=== PATIENT | male | born 1955 | race African-American/Black ===

== ENCOUNTER 2018-07-13 15:18 | Emergency (ER) | payer MEDICARE, OTHER ==
[2018-07-13 16:10] LABS: ALT (SGPT) 9 U/L (8-55); AST (SGOT) 18 U/L (5-34); Albumin 3.4 g/dL (3.4-4.8); Alkaline Phosphatase 75 U/L (40-150); Anion Gap 14 mmol/L (10-20); BUN (Urea Nitrogen) 45 mg/dL (8.4-25.7); Bilirubin, Total 0.3 mg/dL (0.2-1.2); Calc. Creatinine Clearance 0 mL/min (70-130); Calcium 9.3 mg/dL (7.8-10.44); Carbon Dioxide 22 mmol/L (23-31); Chloride 108 mmol/L (98-107); Estimated GFR-MDRD 50; Globulin 3.9 g/dL (2.4-3.5); Glucose 120 mg/dL (80-115); Potassium 5.6 mmol/L (3.5-5.1); Protein, Total 7.3 g/dL (5.8-8.1); Sodium 138 mmol/L (136-145)
[2018-07-13 16:13] LABS: #Basophils 0.1 thou/uL (0.0-0.2); #Eosinphils 0.2 thou/uL (0.0-0.7); #Lymphocytes 1.5 thou/uL (1.20-3.40); #Monocytes 0.6 thou/uL (0.11-0.59); #Neutrophils 5.6 thou/uL (1.40-6.50); %Basophils 1.5 % (0.0-1.0); %Eosinophils 2.4 % (0.0-10.0); %Lymphocytes 19.3 % (21.0-51.0); %Monocytes 7.3 % (0.0-10.0); %Neutrophils 69.5 % (42.0-75.0); Hemoglobin 11.3 g/dL (14.0-18.0); Mean Corpuscular HGB CONC 28.7 g/dL (32.0-36.0); Mean Corpuscular Hemoglobin 24.6 pg (27.0-31.0); Mean Corpuscular Volume 85.6 fL (78.0-98.0); Mean Platelet Volume 9.3 fL (7.4-10.4); Platelet Count 180 thou/uL (130-400); Red Blood Cell (RBC) Count 4.59 mill/uL (4.70-6.10)
[2018-07-13] MEDS ORDERED: Albuterol Sulfate 2.5 mg/3 ml Neb ONE (16:21)
[2018-07-13] MEDS ORDERED: Sodium Chloride 0.9% 1,000 ML ONE (16:21)
[2018-07-13] MEDS ORDERED: Insulin Regular 300 UNITS/3 ML VIAL ONE (16:22)
[2018-07-13] MEDS ORDERED: Aspirin Chewable 81 MG TAB ONE (16:22)
[2018-07-13] MEDS ORDERED: Dextrose 50% Abboject 50 ML SYRINGE ONE (16:22)
[2018-07-13] MEDS ORDERED: Ondansetron PF 4 MG/2 ML Vial ONE (16:23)
== END 2018-07-13 17:38 | disposition home or self-care (01) ==
LOC: NAV ERS 15:18
DX: E87.5 Hyperkalemia (principal); N17.9 Acute kidney failure, unspecified; R00.1 Bradycardia, unspecified; E11.9 Type 2 diabetes mellitus without complications; I11.0 Hypertensive heart disease with heart failure; I50.9 Heart failure, unspecified; M10.9 Gout, unspecified; F17.210 Nicotine dependence, cigarettes, uncomplicated; Z79.899 Other long term (current) drug therapy; Z79.84 Long term (current) use of oral hypoglycemic drugs
CPT/HCPCS: 80053; 84484; 85025; 93005; 94640; 96361; 96374; 96375; J1815; J2405; J7050; J7611

== ENCOUNTER 2019-07-20 18:43 | Inpatient (IN) | payer MEDICARE, OTHER ==
[2019-07-20] MEDS ORDERED: Dextrose 50% Abboject 50 ML SYRINGE IVP PRN (20:46)
[2019-07-20] MEDS ORDERED: HumaLOG 300 UNITS/3 ML VIAL SC PRN ×2 (20:46)
[2019-07-20] MEDS ORDERED: Dextrose 5% in Water 1,000 ML IV PRN (20:46)
[2019-07-20] MEDS ORDERED: Acetaminophen 325 MG TAB PO PRN ×2 (20:47)
[2019-07-20] MEDS ORDERED: Saccharomyces boulardii 250 MG CAP PO SCH (21:00)
[2019-07-20] MEDS: Atorvastatin Calcium 40 MG TAB PO SCH (21:27)
[2019-07-21 06:10] LABS: Anisocytosis MODERATE=16-30 cells (100X) (0-5/hpf); Band 8 % (5-11); Hemoglobin 10.4 g/dL (14.0-18.0); Hypochromia MODERATE=16-30 cells (100X) (0-5/hpf); Lymphocytes 16 % (21-51); MDiff Complete? YES; Mean Corpuscular HGB CONC 28.3 g/dL (32.0-36.0); Mean Corpuscular Hemoglobin 22.9 pg (27.0-31.0); Mean Corpuscular Volume 80.9 fL (78.0-98.0); Mean Platelet Volume 12.4 fL (7.4-10.4); Monocytes 8 % (0-10); Neutrophil 66 % (42-75); Ovalocytes MODERATE= 6-15 cells (100X) (0-1/hpf); Platelet Count 103 thou/uL (130-400); Platelet Morphology Comment Appears Decreased; Poikilocytosis MODERATE=16-30 cells (100X) (0-5/hpf); Polychromasia SLIGHT = 2-3 cells (100X) (0-2/hpf); RBC Distribution Width 18.1 % (11.5-14.5); Reactive Lymphocytes 2 % (0-10); Red Blood Cell (RBC) Count 4.54 mill/uL (4.70-6.10); Schistocytes SLIGHT = 2-5 cells (100X) (0-1/hpf); Target Cells SLIGHT = 2-5 cells (100X) (0-1/hpf); White Blood Cell (WBC) Count 7.9 thou/uL (4.8-10.8)
[2019-07-21 06:13] LABS: ALT (SGPT) 13 U/L (8-55); AST (SGOT) 17 U/L (5-34); Albumin 2.7 g/dL (3.4-4.8); Alkaline Phosphatase 88 U/L (40-110); Anion Gap 13 mmol/L (10-20); BUN (Urea Nitrogen) 57 mg/dL (8.4-25.7); Bilirubin, Total 0.8 mg/dL (0.2-1.2); Calc. Creatinine Clearance 154 mL/min (70-130); Calcium 9.1 mg/dL (7.8-10.44); Carbon Dioxide 33 mmol/L (23-31); Chloride 105 mmol/L (98-107); Estimated GFR-MDRD 70; Globulin 3.9 g/dL (2.4-3.5); Glucose 100 mg/dL (80-115); Potassium 4.2 mmol/L (3.5-5.1); Protein, Total 6.6 g/dL (5.8-8.1); Sodium 147 mmol/L (136-145)
[2019-07-21] MEDS: Ferrous Sulfate 325 MG TAB PO SCH (07:59)
[2019-07-21] MEDS: Saccharomyces boulardii 250 MG CAP PO SCH (08:00)
[2019-07-21] MEDS: Allopurinol 100 MG TAB PO SCH (08:00)
[2019-07-21] MEDS: Torsemide 20 MG TAB PO SCH (08:00)
[2019-07-21] MEDS: Folic Acid 1 MG TAB PO SCH (08:01)
[2019-07-21] MEDS ORDERED: Prevnar 13-Val Conj/PF 0.5 ML SYRINGE IM ONE (09:00)
--- NOTE | 2019-07-21 09:44 | HP ---
CHIEF COMPLAINT: Improving acute hypoxemic hypercarbic respiratory failure and deconditioning for therapy. BRIEF HISTORY: This is a morbidly obese 64-year-old male, who apparently had a mechanical fall at his home in his bathtub. He was noted to have a fever by the EMS and generalized weakness and was admitted to the hospital. He was COVID-19 negative. He was noted to be in hypoxemic hypercarbic respiratory failure felt to be due to obesity hypoventilation with superimposed pneumonia. He was treated with antibiotics, diuretics, and oxygen therapy. He was also started on empiric CPAP therapy at night. Echocardiogram showed global hypokinesis with ejection fraction of 40% to 45% as well as diastolic dysfunction consistent with cor pulmonale and chronic combined congestive heart failure. The patient states he has a history of diabetes, but was taken off his medications by his physician last year. He apparently sees Dr. Carmona in [place]. He last saw him last month, per patient. Currently, he is resting in bed and denies any concerns. He apparently slept well. Discussed with nursing. No fever or chills. No chest pain or shortness of breath. PAST MEDICAL HISTORY: 1. Hypertension. 2. Dyslipidemia. 3. Possible gout. 4. Morbid obesity. 5. History of diabetes mellitus. PAST SURGICAL HISTORY: The patient denies any history of surgeries, but there is documentation of some facial surgery in the past in his old records. ALLERGIES: NO KNOWN DRUG ALLERGIES. FAMILY HISTORY: Denies any history of heart disease or respiratory issues. PSYCHOSOCIAL HISTORY: He has a more than a 30 pack-year history of smoking. He is not smoking at the present time. He denies any alcohol or recreational drug abuse. MEDICATIONS: He has been admitted here with the following medications: 1. Allopurinol 300 mg daily. 2. Atorvastatin 40 mg daily. 3. Iron sulfate 325 mg b.i.d. 4. Folic acid 1 mg daily. 5. Florastor 250 mg daily. 6. Torsemide 20 mg daily. REVIEW OF SYSTEMS: CARDIOVASCULAR SYSTEM: Denies any chest pain. Improving shortness of breath. Denies any palpitations. RESPIRATORY SYSTEM: Denies any chronic cough, expectoration, or pleuritic-type chest pain. GASTROINTESTINAL SYSTEM: Denies any nausea, vomiting, diarrhea, constipation, hematemesis, melena, or hematochezia. GENITOURINARY SYSTEM: Denies any frequency, urgency, dysuria, or hematuria. CENTRAL NERVOUS SYSTEM: Denies any focal numbness, weakness, or fainting spells. HEENT: Denies any difficulty with speech, vision, hearing, or swallowing. SKIN: Denies any rash. NECK: Denies any enlarged lymph nodes. PHYSICAL EXAMINATION: GENERAL: This is a pleasant, morbidly obese 64-year-old male, who is resting in bed and denies any concerns. He responds appropriately to questions. VITAL SIGNS: He is afebrile, heart rate 77, respirations 19, oxygen saturation 93% on 3 L, and blood pressure 152/77. HEENT: Normocephalic and atraumatic. Pupils are equally reacting to light and accommodation. NECK: No JVD, thyromegaly, cervical adenopathy, or throat exudates. No carotid bruits. CARDIOVASCULAR SYSTEM: S1 and S2 plus. Rate and rhythm regular. RESPIRATORY SYSTEM: Normal vesicular breath sounds heard in lung romero with decreased air entry in the bases. ABDOMEN: Soft, obese, nontender. Bowel sounds heard in all quadrants. EXTREMITIES: Without cyanosis or clubbing. 2 to 3+ edema, which looks with stasis dermatitis, edema is brawny. Peripheral pulses are palpable. CENTRAL NERVOUS SYSTEM: Awake and responsive. Cranial nerves 2 through 12 intact. Motor system examination is grossly nonfocal except for generalized weakness. LABORATORY VALUES: Sodium 147, potassium 4.2, BUN and creatinine 57 and 1.25. AST and ALT are normal. Blood sugars are 153 and 90. White count is 7.9, H and H are 10.4 and 36.7 with microcytosis and a platelet count of 103. IMPRESSION: 1. Acute hypoxemic hypercarbic respiratory failure. 2. Obesity hypoventilation syndrome. 3. Resolving pneumonitis. 4. Chronic combined congestive heart failure. 5. One episode of atrial fibrillation. 6. Hypertension. 7. Dyslipidemia. 8. Morbid obesity. 9. Microcytic anemia and thrombocytopenia. 10. Hypernatremia. 11. Elevated BUN. PLAN: 1. Continue current medications. 2. Heart healthy diet. 3. Monitor Accu-Cheks and check glycohemoglobin. Discontinue Accu-Cheks as his hemoglobin A1c is normal. 4. Monitor blood pressure and adjust medications. 5. Nocturnal CPAP. We are going to continue the same settings as he was in the other hospital. 6. Titrate oxygen as tolerated. 7. Reinforced compliance with incentive spirometry. 8. PT/OT eval and treat. 9. Continue iron. 10. Monitor platelet count and monitor for any other signs of bleeding. 11. Routine laboratory values. 12. Discussed with the patient in detail as well as nursing and all questions answered. Job ID: [id number]
[2019-07-21 12:23] LABS: Hemoglobin A1c 6.5 % (4.0-6.0)
[2019-07-21] MEDS ORDERED: Amlodipine 5 MG TAB PO SCH (20:15)
[2019-07-21] MEDS ORDERED: cloNIDine 0.1 MG TAB PO PRN (20:16)
[2019-07-21] MEDS: Atorvastatin Calcium 40 MG TAB PO SCH (20:33)
[2019-07-22] MEDS: Ferrous Sulfate 325 MG TAB PO SCH (08:44)
[2019-07-22] MEDS: Allopurinol 100 MG TAB PO SCH (08:44)
[2019-07-22] MEDS: Amlodipine 5 MG TAB PO SCH (08:45)
[2019-07-22] MEDS: Torsemide 20 MG TAB PO SCH (08:46)
[2019-07-22] MEDS: Saccharomyces boulardii 250 MG CAP PO SCH (08:46)
[2019-07-22] MEDS: Folic Acid 1 MG TAB PO SCH (08:46)
--- NOTE | 2019-07-22 15:16 | PRG ---
DATE OF SERVICE: 07/22/2019 SUBJECTIVE: Mr. Lechuga is doing well. He did require p.r.n. clonidine yesterday. He has started on amlodipine and his blood pressure is doing much better. His A1c is 6.5, and I will discontinue his Accu-Cheks. OBJECTIVE: VITAL SIGNS: The patient is afebrile. Heart rate 54, respirations 22, oxygen saturation 93% on 3 L, and blood pressure 129/71. CARDIOVASCULAR: S1 and S2 plus. RESPIRATORY: Normal vesicular breath sounds. ABDOMEN: Soft, obese, nontender. Bowel sounds heard in all quadrants. EXTREMITIES: Without cyanosis or clubbing. Chronic edema. CENTRAL NERVOUS SYSTEM: Generalized weakness otherwise nonfocal. IMPRESSION: 1. Acute hypoxemic hypercarbic respiratory failure. 2. Obesity hypoventilation syndrome. 3. Morbid obesity. 4. Hypertension. 5. Dyslipidemia. 6. Possible gout. 7. Diabetes mellitus, on dietary management. PLAN: 1. Continue current medications. 2. 1800 calorie heart healthy ADA diet. 3. Discontinue Accu-Cheks since his blood sugars have been reasonably good. 4. Physical therapy. 5. Titrate oxygen. 6. Continue CPAP. 7. Routine laboratory values. Job ID: [id number]
[2019-07-22] MEDS: Atorvastatin Calcium 40 MG TAB PO SCH (21:09)
[2019-07-23] MEDS: Ferrous Sulfate 325 MG TAB PO SCH (08:29)
[2019-07-23] MEDS: Amlodipine 5 MG TAB PO SCH (08:30)
[2019-07-23] MEDS: Torsemide 20 MG TAB PO SCH (08:30)
[2019-07-23] MEDS: Saccharomyces boulardii 250 MG CAP PO SCH (08:30)
[2019-07-23] MEDS: Folic Acid 1 MG TAB PO SCH (08:30)
[2019-07-23] MEDS: Allopurinol 100 MG TAB PO SCH (08:30)
--- NOTE | 2019-07-23 10:55 | PRG ---
DATE OF SERVICE: 07/23/2019 SUBJECTIVE: Mr. Lechuga is resting in bed. Denies any complaints. He has his nasal cannula on, but is actually going to the side of his face. He was not in any distress. OBJECTIVE: VITAL SIGNS: He is afebrile. Heart rate 57, respirations 18, oxygen saturation 93% on 3 L, and blood pressure 140/63. CARDIOVASCULAR: S1 and S2 plus. RESPIRATORY: Normal vesicular breath sounds. ABDOMEN: Soft, obese, nontender. Bowel sounds heard in all quadrants. EXTREMITIES: Without cyanosis or clubbing. Chronic stasis dermatitis and brawny edema. CENTRAL NERVOUS SYSTEM: Generalized weakness. IMPRESSION: 1. Acute hypoxemic respiratory failure. 2. Obesity hypoventilation syndrome. 3. Hypertension. 4. Dyslipidemia. 5. Possible gout. 6. Diabetes mellitus, on dietary management. PLAN: 1. Continue current medications. 2. 1800 calorie heart healthy ADA diet. 3. Titrate oxygen. 4. Monitor respiratory status. 5. Physical therapy. 6. Decubitus precautions. 7. Continue CPAP at night. 8. Routine laboratory values. Job ID: [id number]
[2019-07-23] MEDS: Atorvastatin Calcium 40 MG TAB PO SCH (21:03)
[2019-07-24] MEDS: Ferrous Sulfate 325 MG TAB PO SCH (08:27)
[2019-07-24] MEDS: Saccharomyces boulardii 250 MG CAP PO SCH (08:27)
[2019-07-24] MEDS: Folic Acid 1 MG TAB PO SCH (08:28)
[2019-07-24] MEDS: Allopurinol 100 MG TAB PO SCH (08:28)
[2019-07-24] MEDS: Torsemide 20 MG TAB PO SCH (08:28)
[2019-07-24] MEDS: Amlodipine 5 MG TAB PO SCH (08:28)
--- NOTE | 2019-07-24 12:51 | PRG ---
DATE OF SERVICE: 07/24/2019 SUBJECTIVE: Mr. Lechuga is up in his chair and just finished lunch. He is happy with his progress. He denies any questions or concerns. Discussed with nursing. OBJECTIVE: VITAL SIGNS: He is afebrile, heart rate 60, respirations 16, oxygen saturation 94% on 3 L, and blood pressure 152/66. CARDIOVASCULAR: S1 and S2 plus. RESPIRATORY: Normal vesicular breath sounds. ABDOMEN: Soft, nontender. Bowel sounds heard in all quadrants. EXTREMITIES: Without cyanosis or clubbing. Chronic stasis dermatitis. CENTRAL NERVOUS SYSTEM: Generalized weakness. IMPRESSION: 1. Obesity hypoventilation syndrome. 2. Acute hypoxemic respiratory failure. 3. Morbid obesity. 4. Significant deconditioning. 5. Hypertension. 6. Dyslipidemia. PLAN: 1. Continue current medications. 2. Nutritional support with heart-healthy diet. 3. DVT prophylaxis with PlexiPulses. 4. Decubitus precautions. 5. Stress ulcer prophylaxis. 6. Nocturnal CPAP. 7. Titrate oxygen. 8. Routine laboratory values. Job ID: [id number]
[2019-07-24] MEDS: Atorvastatin Calcium 40 MG TAB PO SCH (21:08)
[2019-07-25] MEDS: Allopurinol 100 MG TAB PO SCH (09:24)
[2019-07-25] MEDS: Ferrous Sulfate 325 MG TAB PO SCH (09:24)
[2019-07-25] MEDS: Folic Acid 1 MG TAB PO SCH (09:24)
[2019-07-25] MEDS: Saccharomyces boulardii 250 MG CAP PO SCH (09:24)
[2019-07-25] MEDS: Amlodipine 5 MG TAB PO SCH (09:24)
[2019-07-25] MEDS: Torsemide 20 MG TAB PO SCH (09:24)
--- NOTE | 2019-07-25 12:19 | PRG ---
DATE OF SERVICE: 07/25/2019 SUBJECTIVE: Mr. Lechuga is up in his chair, getting ready to eat his lunch. He denies any questions or concerns. Discussed with nursing. OBJECTIVE: VITAL SIGNS: He is afebrile. Heart rate is 58, respirations 16, oxygen saturation 96% on 3 L, and blood pressure is 144/64. CARDIOVASCULAR SYSTEM: S1 and S2 plus. RESPIRATORY SYSTEM: Normal vesicular breath sounds. ABDOMEN: Soft and nontender. Bowel sounds heard in all quadrants. EXTREMITIES: Without cyanosis or clubbing. Chronic stasis dermatitis. CENTRAL NERVOUS SYSTEM: Generalized weakness, otherwise nonfocal. IMPRESSION: 1. Obesity hypoventilation syndrome. 2. Acute hypoxemic respiratory failure. 3. Morbid obesity. 4. Deconditioning. 5. Diabetes mellitus, on lifestyle management. 6. Hypertension. 7. Dyslipidemia. PLAN: 1. Discontinue Accu-Cheks. 2. Nutritional support with heart healthy diet. 3. DVT prophylaxis with PlexiPulses. 4. Decubitus precautions. 5. Titrate oxygen. 6. Monitor respiratory status. 7. Physical therapy. 8. Routine laboratory values. Job ID: [id number]
[2019-07-25] MEDS: Atorvastatin Calcium 40 MG TAB PO SCH (20:48)
[2019-07-26] MEDS: Ferrous Sulfate 325 MG TAB PO SCH (08:31)
[2019-07-26] MEDS: Allopurinol 100 MG TAB PO SCH (08:31)
[2019-07-26] MEDS: Saccharomyces boulardii 250 MG CAP PO SCH (08:32)
[2019-07-26] MEDS: Folic Acid 1 MG TAB PO SCH (08:32)
[2019-07-26] MEDS: Torsemide 20 MG TAB PO SCH (08:32)
[2019-07-26] MEDS: Amlodipine 5 MG TAB PO SCH (08:32)
--- NOTE | 2019-07-26 10:49 | PRG ---
DATE OF SERVICE: 07/26/2019 SUBJECTIVE: Mr. Lechuga is doing the same. Denies any complaints. He is happy with his progress. No family at bedside. Discussed with Nursing. OBJECTIVE: VITAL SIGNS: He is afebrile. Heart rate is 55, respirations 18, oxygen saturation 96% on 3 L, and blood pressure 147/66. CARDIOVASCULAR: S1 and S2 plus. RESPIRATORY: Normal vesicular breath sounds. ABDOMEN: Soft and nontender. Bowel sounds heard in all quadrants. Obese. EXTREMITIES: Without cyanosis or clubbing, stasis dermatitis. CENTRAL NERVOUS SYSTEM: Grossly nonfocal except for generalized weakness. IMPRESSION: 1. Obesity hypoventilation syndrome. 2. Morbid obesity. 3. Hypertension. 4. Dyslipidemia. 5. Acute hypoxemic respiratory failure. 6. Diabetes mellitus, on lifestyle management. PLAN: 1. Continue current medications. 2. 1800 calorie heart healthy ADA diet. 3. Discontinue Accu-Cheks since his blood sugars have been stable. 4. Decubitus precautions. 5. DVT prophylaxis with PlexiPulses. 6. Physical therapy. 7. Titrate oxygen and monitor respiratory status. Job ID: [id number]
[2019-07-26] MEDS: Atorvastatin Calcium 40 MG TAB PO SCH (20:09)
[2019-07-27] MEDS: Ferrous Sulfate 325 MG TAB PO SCH (08:01)
[2019-07-27] MEDS: Amlodipine 5 MG TAB PO SCH (08:02)
[2019-07-27] MEDS: Allopurinol 100 MG TAB PO SCH (08:02)
[2019-07-27] MEDS: Folic Acid 1 MG TAB PO SCH (08:03)
[2019-07-27] MEDS: Saccharomyces boulardii 250 MG CAP PO SCH (08:03)
[2019-07-27] MEDS: Torsemide 20 MG TAB PO SCH (08:03)
--- NOTE | 2019-07-27 12:50 | PRG ---
DATE OF SERVICE: 07/27/2019 SUBJECTIVE: Mr. Lechuga is doing well. He is getting ready to wheel himself with therapy. He is happy with his progress. Discussed with nursing. No concerns or questions. OBJECTIVE: VITAL SIGNS: He is afebrile. Heart rate 63, respirations 18, oxygen saturation 95% on 3 L, and blood pressure 144/64. CARDIOVASCULAR SYSTEM: S1 and S2, plus. RESPIRATORY SYSTEM: Normal vesicular breath sounds. ABDOMEN: Soft, obese, nontender. Bowel sounds heard in all quadrants. EXTREMITIES: Without cyanosis or clubbing, chronic stasis dermatitis and brawny edema. CENTRAL NERVOUS SYSTEM: Generalized weakness, otherwise nonfocal. IMPRESSION: 1. Obesity hypoventilation syndrome. 2. Acute hypoxemic hypercarbic respiratory failure. 3. Morbid obesity. 4. Hypertension. 5. Diabetes mellitus, on diet control. 6. Significant deconditioning. 7. Dyslipidemia. PLAN: 1. Continue current medications. 2. 1800-calorie heart-healthy ADA diet. 3. DVT prophylaxis with PlexiPulses. 4. Decubitus precautions. 5. Monitor respiratory status and titrate oxygen. 6. Continue physical therapy. 7. Routine laboratory values. 8. Nocturnal CPAP. Job ID: [id number]
[2019-07-27] MEDS: Atorvastatin Calcium 40 MG TAB PO SCH (21:30)
[2019-07-28] MEDS: Allopurinol 100 MG TAB PO SCH (09:33)
[2019-07-28] MEDS: Ferrous Sulfate 325 MG TAB PO SCH (09:33)
[2019-07-28] MEDS: Saccharomyces boulardii 250 MG CAP PO SCH (09:33)
[2019-07-28] MEDS: Folic Acid 1 MG TAB PO SCH (09:33)
[2019-07-28] MEDS: Torsemide 20 MG TAB PO SCH (09:33)
[2019-07-28] MEDS: Amlodipine 5 MG TAB PO SCH (09:33)
--- NOTE | 2019-07-28 10:22 | PRG ---
DATE OF SERVICE: 07/28/2019 SUBJECTIVE: Mr. Lechuga is resting in bed. He denies any complaints. He had a restful night. Discussed with nursing. No family at bedside. OBJECTIVE: VITAL SIGNS: He is afebrile. Heart rate 64, respirations 18, oxygen saturation 96% on 3 L, and blood pressure 172/74, this is before he got his blood pressure medications. CARDIOVASCULAR: S1 and S2 plus. RESPIRATORY: Normal vesicular breath sounds with decreased air entry at the bases. ABDOMEN: Soft, obese, nontender. Bowel sounds heard in all quadrants. EXTREMITIES: Chronic brawny edema with stasis dermatitis. CENTRAL NERVOUS SYSTEM: Improving deconditioning. IMPRESSION: 1. Obesity hypoventilation syndrome. 2. Acute hypoxemic hypercarbic respiratory failure. 3. Hypertension. 4. Dyslipidemia. 5. Deconditioning. 6. Diabetes mellitus, on dietary management. PLAN: 1. Continue current medications. 2. Titrate oxygen. 3. Monitor respiratory status. 4. 1800 calorie heart healthy ADA diet. 5. Physical therapy. 6. Routine laboratory values. 7. Reinforce complaints with nocturnal CPAP. Job ID: [id number]
[2019-07-28] MEDS: Atorvastatin Calcium 40 MG TAB PO SCH (20:59)
[2019-07-29] MEDS: Amlodipine 5 MG TAB PO SCH (08:49)
[2019-07-29] MEDS: Saccharomyces boulardii 250 MG CAP PO SCH (08:49)
[2019-07-29] MEDS: Ferrous Sulfate 325 MG TAB PO SCH (08:49)
[2019-07-29] MEDS: Folic Acid 1 MG TAB PO SCH (08:49)
[2019-07-29] MEDS: Allopurinol 100 MG TAB PO SCH (08:50)
[2019-07-29] MEDS: Torsemide 20 MG TAB PO SCH (08:50)
[2019-07-29] MEDS: Atorvastatin Calcium 40 MG TAB PO SCH (20:10)
[2019-07-30] MEDS: Saccharomyces boulardii 250 MG CAP PO SCH (08:49)
[2019-07-30] MEDS: Allopurinol 100 MG TAB PO SCH (08:49)
[2019-07-30] MEDS: Amlodipine 5 MG TAB PO SCH (08:50)
[2019-07-30] MEDS: Ferrous Sulfate 325 MG TAB PO SCH (08:50)
[2019-07-30] MEDS: Torsemide 20 MG TAB PO SCH (08:50)
[2019-07-30] MEDS: Folic Acid 1 MG TAB PO SCH (08:50)
[2019-07-30] MEDS: Atorvastatin Calcium 40 MG TAB PO SCH (21:44)
[2019-07-31] MEDS: Amlodipine 5 MG TAB PO SCH (08:08)
[2019-07-31] MEDS: Allopurinol 100 MG TAB PO SCH (08:08)
[2019-07-31] MEDS: Ferrous Sulfate 325 MG TAB PO SCH (08:08)
[2019-07-31] MEDS: Torsemide 20 MG TAB PO SCH (08:09)
[2019-07-31] MEDS: Folic Acid 1 MG TAB PO SCH (08:09)
[2019-07-31] MEDS: Saccharomyces boulardii 250 MG CAP PO SCH (08:09)
--- NOTE | 2019-07-31 13:43 | PRG ---
DATE OF SERVICE: 07/31/2019 SUBJECTIVE: Mr. Lechuga is up in his chair. He just finished lunch. He is happy with his progress. He states he is compliant with his CPAP. OBJECTIVE: VITAL SIGNS: He is afebrile. Heart rate is 60, respirations 18, oxygen saturation 93% on 3 L, and blood pressure is 171/80 and with therapy 146/95. CARDIOVASCULAR: S1 and S2 plus. RESPIRATORY: Normal vesicular breath sounds. ABDOMEN: Soft, obese, nontender. Bowel sounds heard in all quadrants. EXTREMITIES: Without cyanosis or clubbing. Chronic stasis dermatitis and brawny edema. CENTRAL NERVOUS SYSTEM: Improving deconditioning. IMPRESSION: 1. Acute hypoxemic hypercarbic respiratory failure. 2. Obesity hypoventilation syndrome. 3. Diabetes mellitus, on diet control. 4. Hypertension. 5. Dyslipidemia. 6. Morbid obesity. 7. Deconditioning. PLAN: 1. Continue current medications. 2. Heart healthy diet. 3. DVT prophylaxis with PlexiPulses. 4. Decubitus precautions. 5. Stress ulcer prophylaxis. 6. Physical therapy. 7. Recheck CBC and BMP tomorrow. 8. Titrate oxygen. 9. CPAP at night. Job ID: [id number]
[2019-07-31] MEDS: Atorvastatin Calcium 40 MG TAB PO SCH (21:00)
[2019-08-01 06:00] LABS: Anion Gap 13 mmol/L (10-20); BUN (Urea Nitrogen) 41 mg/dL (8.4-25.7); Calc. Creatinine Clearance 132 mL/min (70-130); Calcium 9.1 mg/dL (7.8-10.44); Carbon Dioxide 32 mmol/L (23-31); Chloride 103 mmol/L (98-107); Estimated GFR-MDRD 59; Glucose 89 mg/dL (80-115); Potassium 4.4 mmol/L (3.5-5.1); Sodium 144 mmol/L (136-145)
[2019-08-01 06:06] LABS: #Basophils 0.1 thou/uL (0.0-0.2); #Eosinphils 0.4 thou/uL (0.0-0.7); #Lymphocytes 1.4 thou/uL (1.20-3.40); #Monocytes 0.5 thou/uL (0.11-0.59); #Neutrophils 5.6 thou/uL (1.40-6.50); %Basophils 1.4 % (0.0-1.0); %Eosinophils 5.2 % (0.0-10.0); %Neutrophils 70.4 % (42.0-75.0); Hemoglobin 9.7 g/dL (14.0-18.0); Hypochromia MODERATE=16-30 cells (100X) (0-5/hpf); MDiff Complete? YES; Mean Corpuscular HGB CONC 27.8 g/dL (32.0-36.0); Mean Corpuscular Hemoglobin 22.7 pg (27.0-31.0); Mean Corpuscular Volume 81.6 fL (78.0-98.0); Microcytosis SLIGHT = 6-15 cells (100X) (0-5/hpf); Ovalocytes SLIGHT = 2-5 cells (100X) (0-1/hpf); Platelet Count 141 thou/uL (130-400); Platelet Morphology Comment Appears Adequate; RBC Distribution Width 18.1 % (11.5-14.5); Red Blood Cell (RBC) Count 4.26 mill/uL (4.70-6.10)
[2019-08-01] MEDS: Allopurinol 100 MG TAB PO SCH (09:18)
[2019-08-01] MEDS: Ferrous Sulfate 325 MG TAB PO SCH (09:18)
[2019-08-01] MEDS: Amlodipine 5 MG TAB PO SCH (09:19)
[2019-08-01] MEDS: Saccharomyces boulardii 250 MG CAP PO SCH (09:19)
[2019-08-01] MEDS: Folic Acid 1 MG TAB PO SCH (09:19)
[2019-08-01] MEDS: Torsemide 20 MG TAB PO SCH (09:19)
--- NOTE | 2019-08-01 18:38 | PRG ---
DATE OF SERVICE: 08/01/2019 SUBJECTIVE: Mr. Lechuga is sitting in his chair. He just finished lunch. He is happy with his progress. Denies any questions or concerns. Discussed with nursing. OBJECTIVE: VITAL SIGNS: He is afebrile. Heart rate 57, respirations 18, oxygen saturation 95% on 3 L, and blood pressure 160/69. CARDIOVASCULAR SYSTEM: S1 and S2 plus. RESPIRATORY SYSTEM: Normal vesicular breath sounds. ABDOMEN: Soft, obese, nontender. Bowel sounds heard in all quadrants. EXTREMITIES: Without cyanosis or clubbing. Chronic stasis dermatitis and edema. CENTRAL NERVOUS SYSTEM: Generalized weakness, otherwise nonfocal. IMPRESSION: 1. Hypertension. 2. Dyslipidemia. 3. Acute hypoxemic hypercarbic respiratory failure. 4. Obesity hypoventilation syndrome. 5. Morbid obesity. 6. Diabetes mellitus, on diet control and deconditioning. PLAN: 1. Continue current medications. 2. 1800-calorie heart-healthy ADA diet. 3. Monitor blood pressure. 4. Monitor respiratory status. 5. Reinforce compliance with CPAP. 6. Continue PT/OT. 7. DVT prophylaxis with PlexiPulses. 8. Routine laboratory values. Job ID: [id number]
[2019-08-01] MEDS: Atorvastatin Calcium 40 MG TAB PO SCH (20:05)
[2019-08-02] MEDS: Torsemide 20 MG TAB PO SCH (09:07)
[2019-08-02] MEDS: Allopurinol 100 MG TAB PO SCH (09:07)
[2019-08-02] MEDS: Saccharomyces boulardii 250 MG CAP PO SCH (09:07)
[2019-08-02] MEDS: Ferrous Sulfate 325 MG TAB PO SCH (09:07)
[2019-08-02] MEDS: Folic Acid 1 MG TAB PO SCH (09:07)
[2019-08-02] MEDS: Amlodipine 5 MG TAB PO SCH (09:08)
[2019-08-02] MEDS ORDERED: Loperamide HCl 2 MG CAP PO PRN (12:48)
--- NOTE | 2019-08-02 14:22 | PRG ---
DATE OF SERVICE: 08/02/2019 SUBJECTIVE: Mr. Lechuga is worried about his diarrhea. He apparently had two episodes earlier yesterday and one episode this morning. I advised nursing to send a stool for C diff. If he has another episode, I am also going to stop his probiotic and start him on Imodium p.r.n. after the stool studies are done. He denies any fever or chills. He is happy with progress. I also advised nursing to titrate him off the oxygen. OBJECTIVE: VITAL SIGNS: He is afebrile. Heart rate is 55, oxygen saturation 96% on 2 L. Last blood pressure is 146/63. CARDIOVASCULAR SYSTEM: S1 and S2 plus. RESPIRATORY SYSTEM: Normal vesicular breath sounds. ABDOMEN: Soft, obese, and nontender. Bowel sounds heard in all quadrants. EXTREMITIES: Without cyanosis or clubbing. Chronic stasis dermatitis and brawny edema. CENTRAL NERVOUS SYSTEM: Generalized weakness, otherwise nonfocal. IMPRESSION: 1. Acute hypoxemic hypercarbic respiratory failure. 2. Obesity hypoventilation syndrome. 3. Hypertension. 4. Dyslipidemia. 5. Morbid obesity. 6. Diabetes mellitus, on lifestyle management and diarrhea. PLAN: 1. Continue current medications. 2. Stop Florastor. 3. 1800-calorie heart healthy ADA diet. 4. DVT prophylaxis with PlexiPulses. 5. Stool for C diff. 6. Imodium p.r.n. 7. Continue therapy. 8. Titrate oxygen. 9. Monitor respiratory status. Job ID: [id number]
[2019-08-02] MEDS: Atorvastatin Calcium 40 MG TAB PO SCH (20:08)
[2019-08-03] MEDS: Folic Acid 1 MG TAB PO SCH (08:58)
[2019-08-03] MEDS: Amlodipine 5 MG TAB PO SCH (08:58)
[2019-08-03] MEDS: Allopurinol 100 MG TAB PO SCH (08:58)
[2019-08-03] MEDS: Torsemide 20 MG TAB PO SCH (08:59)
[2019-08-03] MEDS: Saccharomyces boulardii 250 MG CAP PO SCH (08:59)
[2019-08-03] MEDS: Ferrous Sulfate 325 MG TAB PO SCH (08:59)
--- NOTE | 2019-08-03 14:26 | PRG ---
DATE OF SERVICE: 08/03/2019 SUBJECTIVE: Mr. Lechuga is up in his chair and he states that his diarrhea is much improved. He had one small episode this morning. Stool for C diff is pending as they submitted a formed stool. He feels like he is getting stronger. He is down to 2 L of oxygen via nasal cannula. OBJECTIVE: VITAL SIGNS: He is afebrile. Heart rate 59, respirations 16, oxygen saturation 97%, blood pressure 158/69. CARDIOVASCULAR: S1 and S2 plus. RESPIRATORY: Normal vesicular breath sounds. ABDOMEN: Soft, nontender, obese. Bowel sounds heard in all quadrants. EXTREMITIES: Without cyanosis or clubbing. Chronic brawny edema and stasis dermatitis. CENTRAL NERVOUS SYSTEM: Improving deconditioning. IMPRESSION: 1. Diarrhea, much improved. Clostridium difficile is pending. 2. Hypertension. 3. Dyslipidemia. 4. Obesity hypoventilation syndrome. 5. Morbid obesity. 6. Diabetic diabetes mellitus, on diet control. 7. Deconditioning. 8. Acute hypoxemic hypercarbic respiratory failure, improving. PLAN: 1. Continue current medications. 2. 1800 calorie heart healthy ADA diet. 3. Nocturnal CPAP. 4. Monitor respiratory status and titrate oxygen. 5. Continue therapy. 6. DVT prophylaxis with PlexiPulses. 7. Routine laboratory values. Job ID: [id number]
[2019-08-03] MEDS: Atorvastatin Calcium 40 MG TAB PO SCH (21:26)
[2019-08-04] MEDS ORDERED: Amlodipine 5 MG TAB ONE (08:45)
[2019-08-04] MEDS: Ferrous Sulfate 325 MG TAB PO SCH (09:18)
[2019-08-04] MEDS: Saccharomyces boulardii 250 MG CAP PO SCH (09:18)
[2019-08-04] MEDS: Folic Acid 1 MG TAB PO SCH (09:18)
[2019-08-04] MEDS: Torsemide 20 MG TAB PO SCH (09:19)
[2019-08-04] MEDS: Amlodipine 5 MG TAB PO SCH (09:19)
[2019-08-04] MEDS: Allopurinol 100 MG TAB PO SCH (09:19)
--- NOTE | 2019-08-04 10:30 | PRG ---
DATE OF SERVICE: 08/04/2019 SUBJECTIVE: Mr. Lechuga apparently is doing well with therapy. Anticipated discharge date is Wednesday. He is still requiring 2 L of oxygen as he is dropping down into the low 80s with activity. I have off signed paperwork for his oxygen as well as for his bariatric walker, which is recommended by the therapist to reduce his risk for fall. He apparently has [facility] from [place] and he does follow up with his PCP in [place], so Case Management is going to inform [facility] to resume care and will be managed by his PCP. The patient is hesitant about the oxygen at present, he needs it and he may be able to get off it soon. OBJECTIVE: VITAL SIGNS: He is afebrile. Heart rate 58, respirations 16, oxygen saturation 100%, and blood pressure 128/58. CARDIOVASCULAR: S1 and S2 plus. RESPIRATORY: Normal vesicular breath sounds. ABDOMEN: Soft, obese, nontender. Bowel sounds heard in all quadrants. EXTREMITIES: Without cyanosis or clubbing. Chronic venous insufficiency and stasis dermatitis. CENTRAL NERVOUS SYSTEM: Improving deconditioning. IMPRESSION: 1. Acute hypoxemic respiratory failure. 2. Obesity hypoventilation syndrome. 3. Morbid obesity. 4. Hypertension. 5. Dyslipidemia. 6. Diabetes mellitus, on lifestyle management. PLAN: 1. Continue current medications. 2. 1800 calorie heart healthy ADA diet. 3. Monitor blood pressure and adjust medications as needed. 4. Monitor respiratory status. 5. Continue nocturnal CPAP. 6. Outpatient sleep study. 7. Outpatient followup with PCP MICHAEL; home health, the patient already has one before. 8. Continue therapy. Job ID: [id number]
[2019-08-04] MEDS: Atorvastatin Calcium 40 MG TAB PO SCH (20:42)
--- NOTE | 2019-08-05 07:15 | PRG ---
DATE OF SERVICE: 08/05/2019 SUBJECTIVE: Mr. Lechuga is resting in bed. He is tolerating his CPAP. He is happy about his plan to discharge on Wednesday. Arrangements are being made for him to have an outpatient sleep study. He states that he is going to follow up with his PCP in [place]. OBJECTIVE: VITAL SIGNS: He is afebrile. Heart rate 63, respirations 20, oxygen saturation 97% on 2 L. CARDIOVASCULAR: S1, S2 plus. RESPIRATORY: Normal vesicular breath sounds. ABDOMEN: Soft, obese, nontender. Bowel sounds heard in all quadrants. EXTREMITIES: Without cyanosis or clubbing. Chronic brawny edema. CENTRAL NERVOUS SYSTEM: Improving deconditioning. IMPRESSION: 1. Obesity hypoventilation syndrome. 2. Acute hypoxemic respiratory failure. 3. Hypertension. 4. Dyslipidemia. 5. Diabetes mellitus, on lifestyle management. 6. Morbid obesity. PLAN: 1. Continue current medications. 2. 1800-calorie heart healthy ADA diet. 3. Monitor blood pressure and adjust medications as needed. 4. Nocturnal CPAP. 5. Outpatient sleep study. 6. Follow up with PCP. 7. Continue to titrate oxygen. 8. Physical therapy. 9. Routine laboratory values. Job ID: [id number]
[2019-08-05] MEDS: Amlodipine 5 MG TAB PO SCH (08:27)
[2019-08-05] MEDS: Ferrous Sulfate 325 MG TAB PO SCH (08:27)
[2019-08-05] MEDS: Allopurinol 100 MG TAB PO SCH (08:27)
[2019-08-05] MEDS: Folic Acid 1 MG TAB PO SCH (08:28)
[2019-08-05] MEDS: Torsemide 20 MG TAB PO SCH (08:28)
[2019-08-05] MEDS: Saccharomyces boulardii 250 MG CAP PO SCH (08:28)
[2019-08-05] MEDS: Atorvastatin Calcium 40 MG TAB PO SCH (21:02)
[2019-08-06] MEDS: Ferrous Sulfate 325 MG TAB PO SCH (08:26)
[2019-08-06] MEDS: Amlodipine 5 MG TAB PO SCH (08:27)
[2019-08-06] MEDS: Allopurinol 100 MG TAB PO SCH (08:27)
[2019-08-06] MEDS: Saccharomyces boulardii 250 MG CAP PO SCH (08:28)
[2019-08-06] MEDS: Torsemide 20 MG TAB PO SCH (08:28)
[2019-08-06] MEDS: Folic Acid 1 MG TAB PO SCH (08:28)
--- NOTE | 2019-08-06 14:10 | PRG ---
DATE OF SERVICE: 08/06/2019 SUBJECTIVE: Mr. Lechuga is up in his chair and looking forward to going home tomorrow. His oxygen requirement study was done, and he was 95% on 2 L of oxygen. When they removed it, he immediately went apparently down to 85%, and when they placed him back on it, he came up to 92%. This was both with rest and with activity, so his requirements are oxygen 2 L via nasal cannula at all times. OBJECTIVE: VITAL SIGNS: He is afebrile. Heart rate 59, respirations 16, oxygen saturation 95% on 2 L, blood pressure 146/69. CARDIOVASCULAR: S1 and S2 plus. RESPIRATORY: Normal vesicular breath sounds. ABDOMEN: Soft and nontender. Bowel sounds heard in all quadrants. EXTREMITIES: Without cyanosis or clubbing. Chronic brawny edema to lower extremities. IMPRESSION: 1. Acute, unlikely on chronic, hypoxemic respiratory failure. 2. Obesity hypoventilation syndrome. 3. Diabetes mellitus, on diet control. 4. Morbid obesity. 5. Hypertension. 6. Dyslipidemia. 7. Much improved deconditioning. PLAN: 1. Continue current medications. 2. Heart-healthy ADA diet. 3. Monitor blood pressure and adjust medications as needed. 4. Will need outpatient sleep study as soon as possible. 5. We will arrange for oxygen. His requirement states he will likely need 2 L/minute constant. 6. He will follow up with his PCP, and he apparently has home health, which has been informed. The home health will be managed by his PCP. He does qualify for home health and [facility] visit due to his recent diagnosis of acute hypoxemic respiratory failure, him requiring oxygen, and monitoring his blood pressure as it has been fluctuating. He is homebound. Job ID: [id number]
[2019-08-06] MEDS: Atorvastatin Calcium 40 MG TAB PO SCH (21:00)
[2019-08-06 22:22] VITALS: BMI 54.3
[2019-08-07] MEDS: Amlodipine 5 MG TAB PO SCH (08:18)
[2019-08-07] MEDS: Saccharomyces boulardii 250 MG CAP PO SCH (08:18)
[2019-08-07] MEDS: Folic Acid 1 MG TAB PO SCH (08:18)
[2019-08-07] MEDS: Ferrous Sulfate 325 MG TAB PO SCH (08:18)
[2019-08-07] MEDS: Allopurinol 100 MG TAB PO SCH (08:18)
[2019-08-07] MEDS: Torsemide 20 MG TAB PO SCH (08:19)
[2019-08-07 08:29] VITALS: TEMP 98.9
[2019-08-07 13:18] VITALS: BP 168/72
--- NOTE | 2019-08-08 14:24 | DIS ---
DATE OF ADMISSION: 07/20/2019 DATE OF DISCHARGE: 08/07/2019 PRINCIPAL DIAGNOSIS: Acute hypoxemic hypercarbic respiratory failure. SECONDARY DIAGNOSES: 1. Obesity hypoventilation syndrome. 2. Morbid obesity. 3. Hypertension. 4. Dyslipidemia. 5. Gout. 6. Diabetes mellitus, on lifestyle management. 7. Chronic combined congestive heart failure. COMPLICATIONS: None. ADVERSE REACTIONS: None. PROCEDURES: None. BRIEF HISTORY: The patient is a pleasant 64-year-old morbidly obese male, who apparently had a mechanical fall at his home in his bathtub and was unable to get up. He was admitted to the hospital with generalized weakness and fever. He was COVID-19 negative. He was noted to be in hypoxemic hypercarbic respiratory failure and was started on CPAP therapy. Echocardiogram showed ejection fraction of 40% to 45%, global hypokinesis, and diastolic dysfunction. He also has had diabetes, which he has been managing it with lifestyle modification. He was felt to be a candidate for inpatient rehabilitation and transferred here. The patient has slowly improved to the point that he was deemed stable to go home. He has been using CPAP with settings from the other hospital, which was rented. He also required oxygen, which he was able to be tapered down to 2 L, oxygen will be arranged. He was advised to follow up with his PCP MICHAEL to get the sleep study scheduled. I also spoke with his . He apparently has home health already and he is just going to continue with that. PHYSICAL EXAMINATION: VITAL SIGNS: On the day of discharge, he is afebrile. Heart rate is 58; respirations 16; oxygen saturation 98% on nasal cannula 2.5 L for transfer, but he has been doing well on 2 L at 94% to 95% and without oxygen he was dropping down into the 85%; blood pressure 142/63. CARDIOVASCULAR: S1 and S2 plus. RESPIRATORY: Normal vesicular breath sounds. ABDOMEN: Soft, nontender. Bowel sounds heard in all quadrants. Obese. EXTREMITIES: Without cyanosis or clubbing. Chronic brawny edema. CENTRAL NERVOUS SYSTEM: Improving deconditioning. DISCHARGE MEDICATIONS: 1. Tylenol 650 q.6 p.r.n. 2. Allopurinol 300 mg daily. 3. Norvasc 5 mg daily. 4. Lipitor 40 mg daily. 5. Iron sulfate 325 daily. 6. Folic acid 1 mg daily. 7. Demadex 20 mg daily. All these medications were sent into [facility] for a month. Case Management is working to arrange for his home oxygen as well as bariatric walker with seat and I have assigned all those orders. I also spoke with his over the telephone and all questions answered. Total time spent on his discharge was 35 minutes. For full details, please see chart. Job ID: [id number]
== END 2019-08-07 17:00 | disposition home health service (06) | DRG 189 ==
LOC: NAV ACUTE 18:43
PROVIDERS: ADMIT Internal Medicine; ATTEND Internal Medicine
PROC: 5A09357 Assistance with Respiratory Ventilation, Less than 24 Consecutive Hours, Continuous Positive Airway Pressure (ICD-10-PCS; principal; 2019-07-20)
DX: J96.01 Acute respiratory failure with hypoxia (principal); J18.9 Pneumonia, unspecified organism; I50.32 Chronic diastolic (congestive) heart failure; E66.2 Morbid (severe) obesity with alveolar hypoventilation; E87.0 Hyperosmolality and hypernatremia; Z68.43 Body mass index [BMI] 50.0-59.9, adult; J96.02 Acute respiratory failure with hypercapnia; E78.5 Hyperlipidemia, unspecified; M10.9 Gout, unspecified; W18.39XA Other fall on same level, initial encounter; I11.0 Hypertensive heart disease with heart failure; R53.81 Other malaise; R19.7 Diarrhea, unspecified; D69.6 Thrombocytopenia, unspecified; D64.9 Anemia, unspecified; I48.91 Unspecified atrial fibrillation; Z79.01 Long term (current) use of anticoagulants; Z87.891 Personal history of nicotine dependence
CPT/HCPCS: 36416; 80048; 80053; 83036; 85025; 36415-59